=== PATIENT | female | born 1985 | race Caucasian/White ===

== ENCOUNTER 2016-09-12 15:18 | Inpatient (IN) | payer MEDICAID, OTHER ==
[~2016-09-12] VITALS: Ht 167.6 cm; Wt 62.1 kg
[2016-09-12] VITALS (7 sets, daily range): BP systolic 104–120; BP diastolic 61–70; PULSE 77–123; RESP 18–20; TEMP 95.7–98.7; O2SAT 96–99
[~2016-09-12 15:18] MED LIST: SUBO8MIS SL
[2016-09-12] MEDS ORDERED: [UNRECOGNIZED DRUG - OTHER] PO (15:29)
[2016-09-12] MEDS ORDERED: SODIUM CHLORIDE 0.9% FLUSH 5 ML FLUSH IVF PRN (15:30)
[2016-09-12] MEDS ORDERED: SODIUM CHLORID 0.9% 500 ML INJ 500 ML IV ONE (15:30)
[2016-09-12 15:59] LABS: AUTOMATED NEUTROPHIL # 11.1 TH/MM3 (1.8-7.7); BASOPHIL # 0.1 TH/MM3 (0-0.2); BASOPHIL % 0.4 % (0.0-2.0); EOSINOPHIL # 0.1 TH/MM3 (0-0.4); HEMATOCRIT 35.4 % (35.0-46.0); LYMPH % 17.7 % (9.0-44.0); LYMPHOCYTE # 2.6 TH/MM3 (1.0-4.8); MEAN CELL VOLUME 87.8 FL (80.0-100.0); MEAN CORPUSCULAR HEMOGLOBIN 28.7 PG (27.0-34.0); MEAN CORPUSCULAR HGB CONC 32.7 % (32.0-36.0); MONO % 3.8 % (0.0-8.0); NEUT % 77.1 % (16.0-70.0); PLATELET COUNT 503 TH/MM3 (150-450); RED BLOOD COUNT 4.03 MIL/MM3 (4.00-5.30); RED CELL DISTRIBUTION WIDTH 12.4 % (11.6-17.2); WHITE BLOOD COUNT 14.4 TH/MM3 (4.0-11.0)
--- NOTE | 2016-09-12 15:59 | PD ---
HPI Chief Complaint: Chest Pain Time Seen by Provider: 15:29 Travel History International Travel<30 days: No Contact w/Intl Traveler<30days: No Traveled to known affect area: No History of Present Illness HPI Patient presents with complaints of left sided chest pain intermittently today. Denies diaphoresis or shortness of breath. States she awoke at 3 AM to feed her child when she experienced some dizziness. States she's been ill for approximately one month. She is a smoker. Positive family history for cardiac disease. No personal history of cardiac disease. Not diabetic. She does admit to a regular cough. Denies nausea or vomiting. Denies fever. Denies shortness of breath urinary or bowel symptoms. PFSH Past Medical History Anemia: Yes Anxiety: Yes Cancer: Yes (CERVICAL) Diminished Hearing: No Genitourinary: Yes (FREQUENT KIDNEY INFECTIONS) Headaches: Yes Neurologic: Yes (NIGHTMARES) Immunizations Current: Yes Migraines: Yes Thyroid Disease: Yes (HYPO) ?: Not Menopausal: No : 5 Para: 4 Miscarriage: 1 : 0 Ectopic : Yes Social History Alcohol Use: No Tobacco Use: Yes (1/2) Substance Use: No (HX OF) Allergies-Medications (Allergen,Severity, Reaction): Coded Allergies: No Known Allergies (Verified , 09/12/16) Reported Meds & Prescriptions Reported Meds & Active Scripts Active Reported [Bupronophine] 8 Mg PO BID Review of Systems General / Constitutional: No: Fever Eyes: No: Visual changes HENT: No: Headaches Cardiovascular: Positive: Chest Pain or Discomfort Respiratory: Positive: Cough Gastrointestinal: No: Abdominal Pain Genitourinary: No: Dysuria Musculoskeletal: No: Pain Skin: No Rash Neurologic: No: Weakness Psychiatric: No: Depression Endocrine: No: Polydipsia Hematologic/Lymphatic: No: Easy Bruising Physical Exam Narrative GENERAL: Well-nourished, well-developed patient. SKIN: Warm and dry. HEAD: Normocephalic. EYES: No scleral icterus. No injection or drainage. NECK: Supple, trachea midline. No JVD or lymphadenopathy. CARDIOVASCULAR: Regular rate and rhythm without murmurs, gallops, or rubs. RESPIRATORY: Mildly coarse breath sounds. No accessory muscle use. GASTROINTESTINAL: Abdomen soft, non-tender, nondistended. MUSCULOSKELETAL: No cyanosis, or edema. BACK: Nontender without obvious deformity. No CVA tenderness. Data Data Last Documented VS Vital Signs Date Time Temp Pulse Resp B/P Pulse Ox O2 Delivery O2 Flow Rate FiO2 09/12/16 15:43 96 09/12/16 15: 98.7 123 20 104/69 Orders Electrocardiogram (09/12/16:) Ckmb (Isoenzyme) Profile (09/12/16 15:) Complete Blood Count With Diff (09/12/16:) Comprehensive Metabolic Panel (09/12/16) Magnesium (Mg) (09/12/16:) Prothrombin Time / Inr (Pt) (09/12/16:) Act Partial Throm Time (Ptt) (09/12/16:) Troponin I (09/12/16) Chest, Single Ap (09/12/16:) Ecg Monitoring (09/12/16:29) Bilateral Bp Monitoring (09/12/16:) Iv Access Insert/Monitor (09/12/16) Oximetry (09/12/16:) Oxygen Administration (09/12/16:) Sodium Chloride 0.9% Flush (Ns Flush) (09/12/16:30) Sodium Chlorid 0.9% 500 Ml Inj (Ns 500 M (09/12/16:30) Lactic Acid Sepsis Protocol (09/12/16:29) Urinalysis - C+S If Indicated (09/12/16:) Blood Culture (09/12/16:) MDM Medical Decision Making Medical Screen Exam Complete: Yes Emergency Medical Condition: Yes Differential Diagnosis ACS, respiratory infection, sepsis, costochondritis, pleurisy with tobacco abuse Narrative Course Assessment and plan discussed with patient at bedside. EKG revealed sinus tachycardia without ST segment elevations or depressions. Physician Communication Physician Communication Case discussed and care transferred to Jose J Arambula MD Sep 12, 2016 15:59
[2016-09-12] MEDS ORDERED: SODIUM CHLOR 0.9% 1000 ML INJ 1,000 ML IV ONE (16:00)
--- NOTE | 2016-09-12 16:01 | PD ---
Physical Exam Narrative Patient was seen by ED physician and signed out to me. Data Data Last Documented VS Vital Signs Date Time Temp Pulse Resp B/P Pulse Ox O2 Delivery O2 Flow Rate FiO2 09/12/16 15:56 Nasal Cannula 09/12/16 15:56 103 20 112/70 96 119/61 09/12/16 15:25 98.7 Orders Electrocardiogram (09/12/16 15:29) Ckmb (Isoenzyme) Profile (09/12/16:29) Complete Blood Count With Diff (09/12/16:29) Comprehensive Metabolic Panel (09/12/16:29) Magnesium (Mg) (09/12/16:29) Prothrombin Time / Inr (Pt) (09/12/16:) Act Partial Throm Time (Ptt) (09/12/16:) Troponin I (09/12/16:) Chest, Single Ap (09/12/16:29) Ecg Monitoring (09/12/16:29) Bilateral Bp Monitoring (09/12/16:) Iv Access Insert/Monitor (09/12/16:29) Oximetry (09/12/16:29) Oxygen Administration (09/12/16 15:29) Sodium Chloride 0.9% Flush (Ns Flush) (09/12/16 15:30) Sodium Chlorid 0.9% 500 Ml Inj (Ns 500 M (09/12/16 15:30) Lactic Acid Sepsis Protocol (09/12/16 15:29) Urinalysis - C+S If Indicated (09/12/16 15:29) Blood Culture (09/12/16:29) Sodium Chlor 0.9% 1000 Ml Inj (Ns 1000 M (09/12/16 16:00) Ceftriaxone Inj (Rocephin Inj) (09/12/16 16:30) Azithromycin Inj (Zithromax Inj) (09/12/16 16:30) Labs Laboratory Tests Test 09/12/16 09/12/16 15:30 15:40 White Blood Count 14.4 TH/MM3 Red Blood Count 4.03 MIL/MM3 Hemoglobin 11.6 GM/DL Hematocrit 35.4 % Mean Corpuscular Volume 87.8 FL Mean Corpuscular Hemoglobin 28.7 PG Mean Corpuscular Hemoglobin 32.7 % Concent Red Cell Distribution Width 12.4 % Platelet Count 503 TH/MM3 Mean Platelet Volume 7.1 FL Neutrophils (%) (Auto) 77.1 % Lymphocytes (%) (Auto) 17.7 % Monocytes (%) (Auto) 3.8 % Eosinophils (%) (Auto) 1.0 % Basophils (%) (Auto) 0.4 % Neutrophils # (Auto) 11.1 TH/MM3 Lymphocytes # (Auto) 2.6 TH/MM3 Monocytes # (Auto) 0.5 TH/MM3 Eosinophils # (Auto) 0.1 TH/MM3 Basophils # (Auto) 0.1 TH/MM3 CBC Comment DIFF FINAL Differential Comment Prothrombin Time 11.3 SEC Prothromb Time International 1.0 RATIO Ratio Activated Partial 30.3 SEC Thromboplast Time Sodium Level 140 MEQ/L Potassium Level 3.8 MEQ/L Chloride Level 104 MEQ/L Carbon Dioxide Level 28.3 MEQ/L Anion Gap 8 MEQ/L Blood Urea Nitrogen 11 MG/DL Creatinine 0.89 MG/DL Estimat Glomerular Filtration 74 ML/MIN Rate Random Glucose 96 MG/DL Calcium Level 9.0 MG/DL Magnesium Level 2.1 MG/DL Total Bilirubin 0.2 MG/DL Aspartate Amino Transf 10 U/L (AST/SGOT) Alanine Aminotransferase 13 U/L (ALT/SGPT) Alkaline Phosphatase 109 U/L Total Creatine Kinase 42 U/L Troponin I LESS THAN 0.02 NG/ML Total Protein 7.8 GM/DL Albumin 3.2 GM/DL Lactic Acid Level 1.0 mmol/L [facility] Supervised Visit with CIRA: No Interpretation(s) EKG shows sinus tachycardia rate 119. Nonspecific ST-T wave change. Narrative Course Normal saline solution 1 L IV bolus. Rocephin 1 g IV. Zithromax 500 mg IV. Diagnosis Primary Impression: Pneumonia Qualified Code: J18.1 - Pneumonia of left lower lobe due to infectious organism Additional Impression: Atypical chest pain Admitting Information Admitting Physician Requests: it Shayne Gilliland MD Sep 12, 2016 16:01
[2016-09-12 16:02] LABS: HEMO FLAGS DIFF FINAL
[2016-09-12 16:05] LABS: CHLORIDE 104 MEQ/L (98-107); POTASSIUM 3.8 MEQ/L (3.5-5.1); SODIUM (NA) 140 MEQ/L (136-145)
[2016-09-12 16:09] LABS: ANION GAP 8 MEQ/L (5-15); APTT (PATIENT) 30.3 SEC (24.3-30.1); BICARBONATE 28.3 MEQ/L (21.0-32.0); BLOOD UREA NITROGEN 11 MG/DL (7-18); MAGNESIUM 2.1 MG/DL (1.5-2.5); PROTHROMBIN TIME - PATIENT 11.3 SEC (9.8-11.6)
[2016-09-12 16:12] LABS: ALT (GPT) 13 U/L (10-53); AST (GOT) 10 U/L (15-37); GLOMERULAR FILTRATION RATE 74 ML/MIN (>89)
[2016-09-12 16:14] LABS: TOTAL BILIRUBIN ADULT 0.2 MG/DL (0.2-1.0)
[2016-09-12 16:15] LABS: ALKALINE PHOSPHATASE 109 U/L (45-117)
--- NOTE | 2016-09-12 16:22 | RADHPO ---
EXAM DATE/TIME: 09/12/2016 16:10 [place] COMPARISON: No previous studies available for comparison. INDICATIONS : Short of breath, off and on chest pains, cough MEDICAL HISTORY : None. SURGICAL HISTORY : None. ENCOUNTER: Initial ACUITY: 1 day PAIN SCORE: 6/10 LOCATION: Bilateral chest FINDINGS: There is consolidation in the left lung base with partial obscuration of the left hemidiaphragm. Righ t lung is clear. No pleural effusion or pneumothorax on either side. Normal heart size. CONCLUSION: Left base pneumonia. Scott Pham MD on September 12, 2016 at 16:20 Board Certified Radiologist. This report was verified electronically.
[2016-09-12 16:24] LABS: CREATINE KINASE 42 U/L (26-192)
[2016-09-12] MEDS ORDERED: cefTRIAXone INJ 1,000 MG in SODIUM CHLORIDE 0.9% INJ 100 ML IV ONE (16:30)
[2016-09-12] MEDS ORDERED: AZITHROMYCIN INJ 500 MG in SODIUM CHLOR 0.9% 250 ML INJ 250 ML IV ONE (16:30)
[2016-09-12] MEDS ORDERED: RESP: ALBUTEROL 2.5 MG/IPRATROPIUM 0.5 MG NEB (PRN) INH (17:30)
[2016-09-12] MEDS ORDERED: SODIUM CHLORIDE 0.9% FLUSH 5 ML FLUSH IV FLUSH PRN (17:30)
--- NOTE | 2016-09-12 17:53 | HHI.HP ---
[facility] Service [facility] Primary Care Physician Scott Mon MD Admission Diagnosis pneumonia. Atypical chest pain. Diagnoses: Chief Complaint: Couldn't breathe Travel History International Travel<30 Days: No Contact w/Intl Traveler <30 Da: No Traveled to Known Affected Are: No Sepsis Criteria SIRS Criteria (2 or more): Heart rate over 90, WBC > 63552, < 4000 or > 10% bands Sepsis Criteria (SIRS+source): Infect source susp/known Criteria Outcome: Meets sepsis criteria History of Present Illness Patient is a 31-year-old female with minimal past history comes emergency room complaining of at least a month of increased congestion and dizziness and fever and nausea. 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 She does smoke half a pack a day. Patient did not take any over-the- counter medications throughout the month. She did try her humidifier. She did come to the emergency room with tachycardia and leukocytosis and evidence of left sided pneumonia and will need to be admitted for further evaluation and treatment. She has admitted left sided chest pain with deep inspiration and improved with shallow inspiration. Review of Systems Constitutional: COMPLAINS OF: Fatigue, Fever, Chills, Dizziness, DENIES: Diaphoretic episodes, Weight gain, Weight loss, Change in appetite, Night Sweats Endocrine: DENIES: Abnorml menstrual pattern, Heat/cold intolerance, Polydipsia , Polyuria, Polyphagia Eyes: DENIES: Blurred vision, Diplopia, Eye inflammation, Eye pain, Vision loss , Photosensitivity, Double Vision Ears, nose, mouth, throat: DENIES: Tinnitus, Hearing loss, Vertigo, Nasal discharge, Oral lesions, Throat pain, Hoarseness, Ear Pain, Running Nose, Epistaxis, Sinus Pain, Toothache, Odynophagia Respiratory: COMPLAINS OF: Cough, Shortness of breath, DENIES: Apneas, Snoring , Wheezing, Hemoptysis, Sputum production Cardiovascular: COMPLAINS OF: Chest pain, DENIES: Palpitations, Syncope, Dyspnea on Exertion, PND, Lower Extremity Edema, Orthopnea, Claudication Gastrointestinal: DENIES: Abdominal pain, Black stools, Bloody stools, Constipation, Diarrhea, Nausea, Vomiting, Difficulty Swallowing, Anorexia Genitourinary: DENIES: Abnormal vaginal bleeding, Dysmenorrhea, Dyspareunia, Sexual dysfunction, Urinary frequency, Urinary incontinence, Urgency, Hematuria , Dysuria, Nocturia, Vaginal discharge Musculoskeletal: DENIES: Joint pain, Muscle aches, Stiffness, Joint Swelling, Back pain, Neck pain Integumentary: DENIES: Abnormal pigmentation, Pruritus, Rash, Nail changes, Breast masses, Breast skin changes, Nipple discharge Hematologic/lymphatic: DENIES: Bruising, Lymphadenopathy Immunologic/allergic: DENIES: Eczema, Urticaria Neurologic: DENIES: Abnormal gait, Headache, Localized weakness, Paresthesias, Seizures, Speech Problems, Tremor, Poor Balance Psychiatric: DENIES: Anxiety, Confusion, Mood changes, Depression, Hallucinations, Agitation, Suicidal Ideation, Homicidal Ideation, Delusions Except as stated in HPI: all other systems reviewed are Neg Past Family Social History Past Medical History Denies Past Surgical History Left arm Reported Medications None per patient Allergies: Coded Allergies: No Known Allergies (Verified , 09/12/16) Active Ordered Medications Reviewed in the medical record Family History Mother from liver failure and was alcoholic, father of liver failure with alcoholic Social History Smokes half a pack per day, no alcohol, lives with her significant other. Physical Exam Vital Signs Vital Signs Date Time Temp Pulse Resp B/P Pulse Ox O2 Delivery O2 Flow Rate FiO2 09/12/16 17:11 77 20 120/70 99 09/12/16 15:56 Nasal Cannula 09/12/16 15:56 103 20 112/70 96 119/61 09/12/16 15:43 96 09/12/16 15:25 98.7 123 20 104/69 98 Physical Exam GENERAL: This is a well-nourished, well-developed patient, in no apparent distress. SKIN: No rashes, ecchymoses or lesions. Cool and dry. HEAD: Atraumatic. Normocephalic. No temporal or scalp tenderness. EYES: Pupils equal round and reactive. Extraocular motions intact. No scleral icterus. No injection or drainage. ENT: Nose without bleeding, purulent drainage or septal hematoma. Throat without erythema, tonsillar hypertrophy or exudate. Uvula midline. Airway patent. NECK: Trachea midline. No JVD or lymphadenopathy. Supple, nontender, no meningeal signs. CARDIOVASCULAR: Regular rate and rhythm without murmurs, gallops, or rubs. RESPIRATORY: Clear to auscultation. Breath sounds equal bilaterally. No wheezes , rales, or rhonchi. GASTROINTESTINAL: Abdomen soft, non-tender, nondistended. No hepato-splenomegaly , or palpable masses. No guarding. MUSCULOSKELETAL: Extremities without clubbing, cyanosis, or edema. No joint tenderness, effusion, or edema noted. No calf tenderness. Negative Homans sign bilaterally. NEUROLOGICAL: Awake and alert. Cranial nerves II through XII intact. Motor and sensory grossly within normal limits. Five out of 5 muscle strength in all muscle groups. Normal speech. Laboratory Laboratory Tests Test 09/12/16 09/12/16 15:30 15:40 White Blood Count 14.4 Red Blood Count 4.03 Hemoglobin 11.6 Hematocrit 35.4 Mean Corpuscular Volume 87.8 Mean Corpuscular Hemoglobin 28.7 Mean Corpuscular Hemoglobin 32.7 Concent Red Cell Distribution Width 12.4 Platelet Count 503 Mean Platelet Volume 7.1 Neutrophils (%) (Auto) 77.1 Lymphocytes (%) (Auto) 17.7 Monocytes (%) (Auto) 3.8 Eosinophils (%) (Auto) 1.0 Basophils (%) (Auto) 0.4 Neutrophils # (Auto) 11.1 Lymphocytes # (Auto) 2.6 Monocytes # (Auto) 0.5 Eosinophils # (Auto) 0.1 Basophils # (Auto) 0.1 CBC Comment DIFF FINAL Differential Comment Prothrombin Time 11.3 Prothromb Time International 1.0 Ratio Activated Partial 30.3 Thromboplast Time Sodium Level 140 Potassium Level 3.8 Chloride Level 104 Carbon Dioxide Level 28.3 Anion Gap 8 Blood Urea Nitrogen 11 Creatinine 0.89 Estimat Glomerular Filtration 74 Rate Random Glucose 96 Calcium Level 9.0 Magnesium Level 2.1 Total Bilirubin 0.2 Aspartate Amino Transf 10 (AST/SGOT) Alanine Aminotransferase 13 (ALT/SGPT) Alkaline Phosphatase 109 Total Creatine Kinase 42 Troponin I LESS THAN 0.02 Total Protein 7.8 Albumin 3.2 Lactic Acid Level 1.0 Date/Time Procedure Status Source Growth 09/12/16 15:40 Aerobic Blood Culture Received Blood Peripheral Pending 09/12/16 15:40 Anaerobic Blood Culture Received Blood Peripheral Pending Result Diagram: 09/12/16 1530 09/12/16 1530 Imaging Chest xray : Left lobe pneumonia Septic Shock Reassessment Heart: Other (tachycardia) Lungs: Clear Skin: Warm Peripheral Pulses: Bounding Right Radial Bounding Left Radial Bounding Right Popliteal Bounding Left Popliteal Bounding Right Dorsalis Pedis Bounding Left Dorsalis Pedis Bounding Right Posterior Tibial Bounding Left Posterior Tibial Capillary Refill: Brisk Assessment and Plan Problem List: (1) Pneumonia ICD Code: J18.9 Status: Acute Plan: Community-acquired, continue Rocephin and azithromycin, bronchodilators as needed. Dehydration. Patient education. We'll add some decongestant. Patient encouraged to discontinue tobacco Physician Certification 2 Midnight Certification Type: Admission for Inpatient Services Order for Inpatient Services The services are ordered in accordance with Medicare regulations or non- Medicare payer requirements, as applicable. In the case of services not specified as inpatient-only, they are appropriately provided as inpatient services in accordance with the 2-midnight benchmark. Estimated LOS (days): 3 3 days is the estimated time the patient will need to remain in the hospital, assuming treatment plan goals are met and no additional complications. Post-Hospital Plan: Home Problem Qualifiers (1) Pneumonia: Qualified Code: J18.1 - Pneumonia of left lower lobe due to infectious organism Vicki Howard MD Sep 12, 2016 17:53
[2016-09-12] MEDS: IBUPROFEN 400 MG TAB PO SCH (18:11)
[2016-09-12 18:22] LABS: BLOOD, URINE NEG (NEG); GLUCOSE,URINE NEG (NEG); KETONE, URINE NEG (NEG); NITRITE,URINE NEG (NEG)
[2016-09-12 18:24] LABS: METHOD OF COLLECTION CATH; URINE COLOR YELLOW (YELLW/STRAW)
[2016-09-12 18:26] LABS: COMMENT (UR) CULT NOT INDICATED; CULTURE IF INDICATED CULT NOT INDICATED; SQUAMOUS EPITHELIAL CELL URINE 0-5 /hpf (0-5)
[2016-09-12] MEDS: SODIUM CHLORIDE 0.9% FLUSH 5 ML FLUSH IV FLUSH SCH (21:28)
[2016-09-12] MEDS: guaiFENesin E.R. 600 MG TAB PO SCH (21:28)
[2016-09-13] VITALS: BP 122/70; PULSE 66; RESP 18; TEMP 97.6; O2SAT 98
[2016-09-13] MEDS: IBUPROFEN 400 MG TAB PO SCH ×2 (00:07→05:29)
[2016-09-13 04:00] VITALS: BP 109/69; PULSE 65; RESP 18; TEMP 96.6; O2SAT 97
[2016-09-13 08:00] VITALS: BP 107/60; PULSE 55; RESP 18; TEMP 95; O2SAT 98
[2016-09-13 08:20] LABS: AUTOMATED NEUTROPHIL # 5.1 TH/MM3 (1.8-7.7); BASOPHIL # 0.1 TH/MM3 (0-0.2); BASOPHIL % 0.7 % (0.0-2.0); EOSINOPHIL # 0.2 TH/MM3 (0-0.4); EOSINOPHIL % 2.6 % (0.0-4.0); HEMATOCRIT 32.2 % (35.0-46.0); HEMO FLAGS DIFF FINAL; LYMPHOCYTE # 2.5 TH/MM3 (1.0-4.8); MEAN CELL VOLUME 87.9 FL (80.0-100.0); MEAN CORPUSCULAR HEMOGLOBIN 29.1 PG (27.0-34.0); MEAN CORPUSCULAR HGB CONC 33.1 % (32.0-36.0); MONO % 6.5 % (0.0-8.0); NEUT % 61.2 % (16.0-70.0); PLATELET COUNT 391 TH/MM3 (150-450); RED BLOOD COUNT 3.66 MIL/MM3 (4.00-5.30); RED CELL DISTRIBUTION WIDTH 12.7 % (11.6-17.2); WHITE BLOOD COUNT 8.5 TH/MM3 (4.0-11.0)
[2016-09-13 08:23] LABS: POTASSIUM 3.9 MEQ/L (3.5-5.1)
[2016-09-13 08:26] LABS: BICARBONATE 26.4 MEQ/L (21.0-32.0)
[2016-09-13] MEDS: guaiFENesin E.R. 600 MG TAB PO SCH (10:26)
[2016-09-13] MEDS: SODIUM CHLORIDE 0.9% FLUSH 5 ML FLUSH IV FLUSH SCH (10:26)
[2016-09-13 12:00] VITALS: BP 111/67; PULSE 74; RESP 18; TEMP 97.8; O2SAT 97
--- NOTE | 2016-09-13 12:26 | HHI.PR ---
Subjective Remarks Follow community-acquired pneumonia 09/13/16-patient seen and examined, currently afebrile and denies any significant chest pain or shortness of breath. Objective Vitals Vital Signs Date Time Temp Pulse Resp B/P Pulse Ox O2 Delivery O2 Flow Rate FiO2 09/13/16 08:00 95.0 55 18 107/60 98 09/13/16 04:00 96.6 65 18 109/69 97 09/13/16 02:50 Nasal Cannula 2.00 09/13/16 00:00 97.6 66 18 122/70 98 09/12/16 20:53 96 09/12/16 20:01 80 09/12/16 20:00 95.7 85 18 110/64 97 09/12/16 17:11 77 20 120/70 99 09/12/16 15:56 Nasal Cannula 09/12/16 15:56 103 20 112/70 96 119/61 09/12/16 15:43 96 09/12/16 15:25 98.7 123 20 104/69 98 I/O 09/12/16 09/12/16 09/12/16 09/13/16 09/13/16 09/13/16 07:00 15:00 23:00 07:00 15:00 23:00 Intake Total 0 ml 120 ml Balance 0 ml 120 ml Intake Oral 120 ml IV Total 0 ml 0 ml # Voids 6 # Bowel Movements 1 Result Diagram: 09/13/1628 09/13/16727 Objective Remarks GENERAL: NAD SKIN: Warm and dry. HEAD: Normocephalic. EYES: No scleral icterus. No injection or drainage. NECK: Supple, trachea midline. No JVD or lymphadenopathy. CARDIOVASCULAR: Regular rate and rhythm without murmurs, gallops, or rubs. RESPIRATORY: Breath sounds equal bilaterally. No accessory muscle use. GASTROINTESTINAL: Abdomen soft, non-tender, nondistended. MUSCULOSKELETAL: No cyanosis, or edema. BACK: Nontender without obvious deformity. No CVA tenderness. Procedures none A/P Problem List: (1) Pneumonia ICD Code: J18.9 Status: Acute Assessment and Plan 32-year-old female with Community-acquired pneumonia: Currently on Rocephin and azithromycin with improvement of symptoms since admission. Patient is breast-feeding therefore will discharge home on azithromycin 250 mg by mouth daily 5 more days. Tobacco abuse.: Patient advised on tobacco cessation. DVT prophylaxis; encourage ambulation. Problem Qualifiers (1) Pneumonia: Qualified Code: J18.1 - Pneumonia of left lower lobe due to infectious organism Tony Berg MD Sep 13, 2016 12:26
[2016-09-13] MEDS ORDERED: AZIT250T3 PO (12:29)
--- NOTE | 2016-09-13 12:31 | HHI.DS ---
Discharge Summary Admission Date Sep 12, 2016 at 16:48 Discharge Date: Sep 13, 2016 Admitting Diagnosis pneumonia. Atypical chest pain. (1) Pneumonia ICD Code: J18.9 Procedures none Brief History - From Admission Patient is a 31-year-old female with minimal past history comes emergency room complaining of at least a month of increased congestion and dizziness and fever and nausea. 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 She does smoke half a pack a day. Patient did not take any over-the- counter medications throughout the month. She did try her humidifier. She did come to the emergency room with tachycardia and leukocytosis and evidence of left sided pneumonia and will need to be admitted for further evaluation and treatment. She has admitted left sided chest pain with deep inspiration and improved with shallow inspiration. CBC/BMP: 09/13/16 0728 09/13/16 0728 Significant Findings Laboratory Tests Test 09/12/16 09/13/16 15:30 07:28 White Blood Count 14.4 TH/MM3 (4.0-11.0) Platelet Count 503 TH/MM3 (150-450) Neutrophils (%) (Auto) 77.1 % (16.0-70.0) Neutrophils # (Auto) 11.1 TH/MM3 (1.8-7.7) Activated Partial 30.3 SEC Thromboplast Time (24.3-30.1) Estimat Glomerular Filtration 74 ML/MIN (>89) 88 ML/MIN (>89) Rate Aspartate Amino Transf 10 U/L (15-37) (AST/SGOT) Troponin I LESS THAN 0.02 NG/ML (0.02-0.05) Albumin 3.2 GM/DL (3.4-5.0) Red Blood Count 3.66 MIL/MM3 (4.00-5.30) Hemoglobin 10.7 GM/DL (11.6-15.3) Hematocrit 32.2 % (35.0-46.0) Chloride Level 108 MEQ/L (98-107) Imaging Last Impressions Chest X-Ray 09/12/16 1529 Signed Impressions: Service Date/Time: Monday, September 12, 2016 16:10 - CONCLUSION: Left base pneumonia. Scott Pham MD PE at Discharge GENERAL: NAD SKIN: Warm and dry. HEAD: Normocephalic. EYES: No scleral icterus. No injection or drainage. NECK: Supple, trachea midline. No JVD or lymphadenopathy. CARDIOVASCULAR: Regular rate and rhythm without murmurs, gallops, or rubs. RESPIRATORY: Breath sounds equal bilaterally. No accessory muscle use. GASTROINTESTINAL: Abdomen soft, non-tender, nondistended. MUSCULOSKELETAL: No cyanosis, or edema. BACK: Nontender without obvious deformity. No CVA tenderness. Hospital Course Patient was admitted and started on IV Rocephin and azithromycin secondary to pneumonia with improvement of symptom prior to discharge. Oxygen saturation was maintained above 92%. She was counseled against tobacco cessation. DVT prophylaxis was provided. Vital remained stable prior to discharge. Pt Condition on Discharge: Stable Discharge Disposition: Discharge Home Discharge Time: <= 30 minutes Discharge Instructions DIET: Follow Instructions for: Heart Healthy Diet Activities you can perform: Regular-No Restrictions Follow up Referrals: PCP Follow-up - 1 Week New Medications: Azithromycin (Azithromycin) 250 Mg Tab 250 MG PO DIRECTED Take 2 tabs (500 mg) on day 1 then 1 tab daily x 4 days. Infection #5 Ref 0 TAB Continued Medications: ([Bupronophine]) 8 MG PO BID Tony Berg MD Sep 13, 2016 12:31
--- NOTE | 2016-09-13 15:22 | EKG ---
Date Performed: 09/12/2016 Time Performed: 15:20:24 PTAGE: 31 years EKG: Sinus tachycardia Compared to the PREVIOUS TRACING the patient has developed sinus tachycardia Normal ECG except for rate PREVIOUS TRACIN10/12/2008 21.54 DOCTOR: Emmanuelle Price Interpretating Date/Time 09/13/2016 15:20:12
[2016-09-13] MEDS ORDERED: cefTRIAXone INJ 1,000 MG in SODIUM CHLORIDE 0.9% INJ 100 ML IV SCH (17:00)
[2016-09-13] MEDS ORDERED: AZITHROMYCIN INJ 500 MG in SODIUM CHLOR 0.9% 250 ML INJ 250 ML IV SCH (18:00)
== END 2016-09-13 13:11 | disposition home or self-care (01) | DRG 195 ==
LOC: PHED 15:18 → PHEDA 16:48 → PH3B 18:23
PROVIDERS: ADMIT Hospitalist; ATTEND Hospitalist
DX: J18.9 Pneumonia, unspecified organism (principal); E86.0 Dehydration; F17.210 Nicotine dependence, cigarettes, uncomplicated; R00.0 Tachycardia, unspecified; Z81.1 Family history of alcohol abuse and dependence
CPT/HCPCS: 71010; 80048; 80053; 81001; 82550; 83605; 83735; 84484; 85025; 85610; 85730; 87040; 87449; 87804; 93005; 96361; 96365; J0456; J0696; J7030; J7040; J7050